=== PATIENT | male | born 1995 | race Caucasian/White ===

== ENCOUNTER 2019-03-06 13:34 | Emergency (ER) | payer OTHER ==
[~2019-03-06] VITALS: Ht 177.8 cm; Wt 77.1 kg
[2019-03-06 13:47] VITALS: BP 120/74
[2019-03-06] MEDS ORDERED: LIDOCAINE 1% VIAL ONE (13:59)
[2019-03-06] MEDS ORDERED: ADACEL VIAL IM ONE ×2 (14:00→14:02)
--- NOTE | 2019-03-06 14:04 | ER.PDOC ---
General Chief Complaint: Requesting Medical Care Stated Complaint: LACERATION BETWEEN RIGHT THUMB AND POINTER FINGER Time seen by MD: 14:01 Source: patient Exam Limitations: no limitations History of Present Illness Initial Comments Laceration left first finger web space. Occurred: just prior to arrival Where: home Severity: mild Context: laceration Review of Systems Constitutional: no symptoms reported EENTM: no symptoms reported Respiratory: no symptoms reported Cardiovascular: no symptoms reported Gastrointestinal: no symptoms reported Skin: see HPI All Other Systems: Reviewed and Negative Physical Exam General Appearance: Alert, No Apparent Distress Hand: nml inspection, non-tender, no evidence FB Wrist: nml inspection, non-tender, nml ROM, see diagram 1 - Lac Neuro: sensation nml, motor nml Vascular: no vascular compromise Tendons: tendon function nml Forearm/Elbow/Arm: uninjured above wrist Head/ENT: nml inspection, pharynx nml Neck/Back: nml inspection, non-tender Resp/CVS: no resp distress, lungs clear, heart sounds nml, reg. rate & rhythm Abdomen: non-tender, no organomegaly ED LACERATION WOUND REPAIR # of Wounds/Lacerations Presen: 1 Wound Location & Length (Requi: Right hand Wound Length (cm): 2 Wound cleaned: betadine Anesthesia: 1% Lidocaine Volume Anesthetic (ccs): 5 Wound's Depth, Shape: linear Irrigated w/ Saline (ccs): 20 Wound Repaired With: sutures Suture Size/Type: 4:0, ethilon Suture Style: interupted Number of Sutures: 3 Sterile Dressing Applied?: Yes Results/Orders Results/Orders Orders - JESSICA SIBLEY MD Diph,Pertuss(Acell),Tet Vac/Pf (Adacel V (03/06/19 14:00) Administered Medications Medications (Trade) Dose Ordered Sig/Gorge Route PRN Reason Start Time Stop Time Status Last Admin Dose Admin Diphtheria/ Tetanus/Acell Pertussis (Adacel Vial) 0.5 ml ONCE ONCE IM 03/06/19 14:00 03/06/19 14:02 DC 03/06/19 14:08 0.5 ML Departure Time of Disposition: 14:16 Disposition: 01 HOME, SELF-CARE Impression: Primary Impression: Laceration of hand Condition: Stable Referrals: PCP,UNKNOWN (PCP) PRIMARY CARE PROVIDER Additional Instructions: Keflex Ibuprofen Apply Neosporin daily Remove sutures in 7 days at your PCP or ED Duration or Time Spent with Pa: 30 mins Problem Qualifiers Primary Impression: Laceration of hand Encounter type: initial encounter Foreign body presence: without foreign body Laterality: right Qualified Codes: S61.411A - Laceration without foreign body of right hand, initial encounter JESSICA SIBLEY MD Mar 06, 2019 14:04
[2019-03-06] MEDS ORDERED: TRIPLE ANTIBIOTIC OINTMENT TP ONE (14:33)
== END 2019-03-06 14:36 | disposition home or self-care (01) ==
LOC: ER 13:34
DX: S61.412A Laceration without foreign body of left hand, initial encounter (principal); W45.8XXA Other foreign body or object entering through skin, initial encounter; Y93.89 Activity, other specified; Y92.098 Other place in other non-institutional residence as the place of occurrence of the external cause; Y99.8 Other external cause status
CPT/HCPCS: 12001; 90471; 90715; 99283; J2001

== ENCOUNTER 2023-01-15 11:53 | Emergency (ER) | payer SELFPAY ==
[~2023-01-15] VITALS: Ht 172.7 cm; Wt 77.1 kg
[2023-01-15 11:53] VITALS: BP 156/96; PULSE 64; RESP 18; TEMP 98.5; O2SAT 96
[2023-01-15 12:57] VITALS: BP 107/57; PULSE 53; RESP 18; TEMP 98.5; O2SAT 96
[2023-01-15 13:27] LABS: BASOPHIL # 0.1 10^3/uL (0.0-0.1); BASOPHIL % 0.8 % (0.0-0.2); EOSINOPHIL # 0.3 10^3/uL (0.0-0.2); EOSINOPHIL % 3.8 % (0.0-5.0); HEMATOCRIT(ML) 40.5 % (37.0-53.0); HEMOGLOBIN 14.4 g/dL (13.9-16.3); IG % 0.3 % (0.00-0.50); LYMPHOCYTES # 2.06 10^3/uL1 (1.0-4.8); MEAN CORP HGB 28.9 pg (26-34); MEAN CORP HGB CONCENTRATION 35.6 g/dL (33-36.5); MEAN CORP VOLUME 81.2 fL (78-100); MONOCYTES # 0.5 10^3/uL (0.3-0.8); MONOCYTES % 7.7 % (5.0-12.0); NEUTROPHIL # 3.8 10^3/uL (1.8-7.7); NEUTROPHILS % 56.4 % (41.0-85.0); RED BLOOD CELL 4.99 10^6/uL (4.50-5.90); RED CELL DISTRIBUTION WIDTH 12.4 % (11.5-14.5); WHITE BLOOD CELL 6.6 10^3/uL (4.5-11.0)
[2023-01-15] MEDS ORDERED: NS 1000ML 1,000 ML ONE (13:27)
[2023-01-15] MEDS ORDERED: NS 1000ML 1,000 ML IV ONE (13:30)
[2023-01-15 13:37] LABS: ANION GAP 11.2; CALCIUM 8.9 mg/dL (8.4-10.5); CARBON DIOXIDE 26.3 mmol/L (20.0-32); CREATININE SERUM 1.17 mg/dL (0.59-1.40); EST GFR, NON-AA 74.8 (>/=60); POTASSIUM 4.5 mmol/L (3.6-5.2)
== END 2023-01-15 14:09 | disposition home or self-care (01) ==
LOC: ER 11:53
DX: R53.81 Other malaise (principal); J02.9 Acute pharyngitis, unspecified; R11.0 Nausea
CPT/HCPCS: 99283; 96360; 85025; 36415; 80048; 87070; 87880; J7030